=== PATIENT | female | born 1945 | race Caucasian/White ===

== ENCOUNTER 2017-10-08 13:43 | Emergency (ER) | payer MEDICARE ==
--- NOTE | 2017-10-08 14:41 | ER Document Report ---
ED Medical Screen (RME) - General Chief Complaint: Shortness Of Breath Stated Complaint: FALL/LEFT SHOULDER PAIN Time Seen by Provider: 10/08/17 14:35 Notes: 72-year-old female patient was holding onto a dog leads and a large dog jerked her and she fell off of stairs going down about 6 steps landing on the ground on her left shoulder area. This occurred on 4 days ago. She reports the pain in her upper left anterior chest, and posterior shoulder scapular region has been getting worse. Brief exam shows some tenderness to the upper left anterior lateral ribs near the shoulder, the shoulder itself is not really very tender. There is extreme tenderness to palpate along the inferior scapular region. Patient states she has had a little bit of a headache, it did knock her glasses off there is no loss consciousness. There is no neck pain. She is a long-term smoker but has not had any respiratory problems, other than the pain associated with breathing. I have greeted and performed a rapid initial assessment of this patient. A comprehensive ED assessment and evaluation of the patient, analysis of test results and completion of the medical decision making process will be conducted by additional ED providers. TRAVEL OUTSIDE OF THE [place] IN LAST 30 DAYS: No - Related Data Allergies/Adverse Reactions: No Known Allergies Allergy (Unverified 10/08/17 14:34) Home Medications: Current Home Medications No Home Medications 10/08/17 [History] Physical Exam - Vital signs Vitals: Temp Pulse Resp BP Pulse Ox 97.9 F 80 18 157/73 H 94 10/08/17 14:31 10/08/17 14:31 10/08/17 14:31 10/08/17 14:31 10/08/17 14:31 Course - Vital Signs Vital signs: Temp Pulse Resp BP Pulse Ox 97.9 F 80 18 157/73 H 94 10/08/17 14:31 10/08/17 14:31 10/08/17 14:31 10/08/17 14:31 10/08/17 14:31
[2017-10-08] MEDS ORDERED: IPRATROPIUM/ALBUTEROL 0.5-2.5 MG/3 ML AMPUL NEB ONE (15:10)
--- NOTE | 2017-10-08 15:11 | ER Document Report ---
ED General - General Chief Complaint: Shortness Of Breath Stated Complaint: FALL/LEFT SHOULDER PAIN Time Seen by Provider: 10/08/17 14:35 Mode of Arrival: Ambulatory Information source: Patient Notes: 72-year-old female with history of cigarette smoking presents to the emergency room with upper back pain after a fall on (3 days ago). Patient was taking the dog and the dog yanked the patient off the steps and she fell to the ground. Patient's states she fell 5 or 6 steps at that time. There is no loss of consciousness. Patient has been progressively getting increasing pain to the left upper back when she moves around. TRAVEL OUTSIDE OF THE [place] IN LAST 30 DAYS: No - HPI Onset: Last week Onset/Duration: Gradual Quality of pain: Dull Severity: Moderate Pain Level: 2 Associated symptoms: denies: Chest pain, Fever, Shortness of breath Exacerbated by: Movement Relieved by: Denies Similar symptoms previously: No Recently seen / treated by doctor: No - Related Data Allergies/Adverse Reactions: No Known Allergies Allergy (Unverified 10/08/17 14:34) Past Medical History - General Information source: Patient - Social History Smoking Status: Current Every Day Smoker Cigarette use (# per day): Yes - 1 pack per day Chew tobacco use (# tins/day): No Smoking Education Provided: Yes - Approximately 3 minutes Frequency of alcohol use: Rare Drug Abuse: None Lives with: Spouse/Significant other Family History: None Patient has suicidal ideation: No Patient has homicidal ideation: No - Past Medical History Cardiac Medical History: Reports: None Pulmonary Medical History: Reports: None EENT Medical History: Reports: None Neurological Medical History: Reports: Other - History of a cerebral aneurysm Endocrine Medical History: Reports: None Renal/ Medical History: Reports: None. Denies: Hx Peritoneal Dialysis Malignancy Medical History: Reports: None GI Medical History: Reports: None Musculoskeltal Medical History: Reports None Skin Medical History: Reports None Psychiatric Medical History: Reports: None Traumatic Medical History: Reports: None Infectious Medical History: Reports: None Past Surgical History: Reports: Hx Cholecystectomy, Other - Remote neurosurgery Review of Systems - Review of Systems Constitutional: denies: Chills, Fever EENT: No symptoms reported Cardiovascular: No symptoms reported Respiratory: No symptoms reported Gastrointestinal: No symptoms reported Genitourinary: No symptoms reported Female Genitourinary: No symptoms reported Musculoskeletal: See HPI Skin: No symptoms reported Hematologic/Lymphatic: No symptoms reported Neurological/Psychological: No symptoms reported Physical Exam - Vital signs Vitals: Temp Pulse Resp BP Pulse Ox 97.9 F 80 18 157/73 H 94 10/08/17 14:31 10/08/17 14:31 10/08/17 14:31 10/08/17 14:31 10/08/17 14:31 Notes: Physical exam: GENERAL: 72-year-old female, alert and oriented 3, no acute distress HEAD: Atraumatic, normocephalic. EYES: Pupils equal round and reactive to light, extraocular movements intact, sclera anicteric, conjunctiva are normal. ENT: TMs normal, nares patent, oropharynx clear without exudates. Moist mucous membranes. NECK: Normal range of motion, supple without obvious mass or JVD. LUNGS: Patient is wheezing bilaterally BACK: No cervical spine, thoracic spine or lumbar spine tenderness to palpation. It appears to have right posterior rib pain just below the scapula. There is no obvious crepitus. There is no obvious skin changes. HEART: Regular rate and rhythm without murmurs, rubs or gallops. ABDOMEN: Soft, normoactive bowel sounds. No tenderness to palpation. No guarding, no rebound. No masses appreciated. EXTREMITIES: Normal range of motion, no pitting or edema. No clubbing or cyanosis. NEUROLOGICAL: Cranial nerves II through XII grossly intact. Normal speech, moving all extremities. PSYCH: Normal mood, normal affect. SKIN: Warm, Dry, normal turgor, no rashes or lesions noted. Course - Re-evaluation Re-evalutation: 10/08/17 19:40 Did discuss with patient that the x-rays did not show any obvious fractures. I discussed with them that the x-rays can miss small subtle rib fractures. Additionally a rib contusion can cause just as much pain as a small fracture. On physical exam, I did notice that the patient was wheezing a fair amount. She denies any history of COPD or emphysema but she has been a smoker for many decades. I have advised that she stop. I did give her nebulizer treatment. While the patient states she did not get much relief, her wheezing has significantly improved after the nebulizer treatment. So I am giving the patient short course of steroids in addition to an albuterol inhaler for her reactive airway disease (felt most likely due to undiagnosed COPD). Steroids may actually give her some relief of pain as well. Additionally have given her some Percocet for pain that is unrelieved with the Medrol Dosepak. I have given her numbers for physicians that admit to this hospital. - Vital Signs Vital signs: Temp Pulse Resp BP Pulse Ox 98.1 F 80 16 149/72 H 95 10/08/17 17:00 10/08/17 17:00 10/08/17 17:00 10/08/17 17:00 10/08/17 17:00 - Diagnostic Test Radiology reviewed: Image reviewed, Reports reviewed - Chest x-ray and rib films no pulmonary contusion, obvious rib fractures. Discharge - Discharge Clinical Impression: Rib contusion status post fall, Reactive airway disease Condition: Stable Disposition: HOME, SELF-CARE Additional Instructions: Thank you for choosing [facility] for your care. The examination and treatment you have received in the Emergency Department today has been rendered on an emergency basis only and is not intended to be a substitute for complete medical care. You should contact your follow-up physician as it is important that he or she examine you for any new or remaining problems. If given a copy of any lab tests or radiology reports, please bring them with you when you see your physician. If your problem worsens or new symptoms appear and you are unable to arrange prompt follow-up care, return to the Emergency Department. Specific signs to look out for: Worsening shortness of breath, worsening pain or any concerns or getting worse. Any other instructions: Take the Medrol Dosepak as prescribed: Start tomorrow, you given today's dose in the ER. Do not take ibuprofen while taking the Medrol Dosepak. Take the Percocet as needed for pain unrelieved by the Medrol Dosepak. See the narcotic instructions below. Use the albuterol inhaler as needed: 2 puffs every 4-6 hours for wheezing or shortness of breath. The pain medicine you're taking prescribed as a narcotic. There are several important things you should know about this medicine: 1. This medicine contains Tylenol: It is important that you do not take Tylenol (or acetaminophen) while on this medicine. Tylenol is metabolized by the liver and taking too much Tylenol (acetaminophen) can lay to liver damage and even liver failure. 2. Taking narcotics for too long can lead to physical and mental dependence. Take this medicine only if really needed and in the lowest quantity to achieve pain relief. 3. Do not drink alcohol while on this medicine. Alcohol interacts with narcotics and the combination can be dangerous. 4. Do not drive or operate machinery while on this medicine. 5. Narcotics do cause constipation, so drink plenty of fluids and daily stool softeners. Primary Care Doctor's affiliated with [facility]: If you do not have a primary care doctor or you are unable to get an apointment during that time, you can try one of the doctor's below. These are internal medicine doctor's that have admitting priveledges to the hospital ( they will see you both in the office as well as in this hospital if you are ever hospitalized here). Dr. Veronica Randall [phone], [place] [phone] Dr Triplett Address: [address] [place] [address] , [place] [address] Dr Kim Address: [address] [place] [address] , [place] [address] Prescriptions: Methylprednisolone [Medrol 4 mg Dosepack 21 Tab/Pack] 4 mg PO ASDIR PRN #21 tab.ds.pk PRN Reason: Oxycodone HCl/Acetaminophen [Percocet 5-325 mg Tablet] 1 - 2 tab PO ASDIR PRN # 15 tablet PRN Reason:
--- NOTE | 2017-10-08 15:13 | RADIOLOGY REPORT (SQ) ---
EXAM DESCRIPTION: SHOULDER LEFT 2 OR MORE VIEWS COMPLETED DATE/TIME: 10/08/2017 3:04 pm REASON FOR STUDY: fell of stairs onto ground 3 days ago, pain worse COMPARISON: None. NUMBER OF VIEWS: Three views. TECHNIQUE: Internal rotation, external rotation, and Y view images acquired of the left shoulder. LIMITATIONS: None. FINDINGS: MINERALIZATION: Normal. BONES: No acute fracture or dislocation. No worrisome bone lesions. JOINTS: No dislocation. VISUALIZED LUNGS AND RIBS: No pneumothorax. No rib fracture. SOFT TISSUES: No radiopaque foreign body. OTHER: No other significant finding. IMPRESSION: NEGATIVE STUDY OF THE LEFT SHOULDER. NO RADIOGRAPHIC EVIDENCE OF ACUTE INJURY. TECHNICAL DOCUMENTATION: JOB ID: [id number] [employer]- All Rights Reserved
--- NOTE | 2017-10-08 15:14 | RADIOLOGY REPORT (SQ) ---
EXAM DESCRIPTION: RIBS LEFT W/PA CHEST COMPLETED DATE/TIME: 10/08/2017 3:04 pm REASON FOR STUDY: fell of stairs onto ground 3 days ago, pain worse COMPARISON: None. TECHNIQUE: Frontal view of the chest and additional views of the left ribs acquired. NUMBER OF VIEWS: Three view. LIMITATIONS: None. FINDINGS: FRONTAL CXR: No pneumothorax. No pleural effusion. No atelectasis or infiltrates. RIBS: No displaced rib fractures. No lytic or blastic bony lesions. OTHER: No other significant finding. IMPRESSION: NO PNEUMOTHORAX. NO DISPLACED RIB FRACTURES. COMMENT: SITE OF TRAUMA/COMPLAINT MARKED/STAMP COMPLETED: NO. TECHNICAL DOCUMENTATION: JOB ID: [id number] [employer] All Rights Reserved
[2017-10-08] MEDS ORDERED: ALBUTEROL SULFATE HFA (90 MCG/PUFF) 8 GM MDI (1 MDI/ER DISP) IH PRN (16:44)
[2017-10-08] MEDS ORDERED: PREDNISONE 20 MG TABLET PO ONE (16:44)
[2017-10-08 17:02] VITALS: BP 149/72
== END 2017-10-08 17:00 | disposition home or self-care (01) ==
LOC: ER 13:43
DX: S20.219A Contusion of unspecified front wall of thorax, initial encounter (principal); J45.909 Unspecified asthma, uncomplicated; R06.02 Shortness of breath; M25.512 Pain in left shoulder; F17.200 Nicotine dependence, unspecified, uncomplicated; W10.9XXA Fall (on) (from) unspecified stairs and steps, initial encounter; F17.210 Nicotine dependence, cigarettes, uncomplicated
CPT/HCPCS: 94640; 99284; 71101; 73030; A9270 ×2; J3490; J7512; J7620